=== PATIENT | female | born 1965 | race Caucasian/White ===

== ENCOUNTER 2017-09-24 08:33 | Outpatient (CLI) | payer BC ==
--- NOTE | 2017-09-29 19:06 | Mammography Report ---
DATE OF SERVICE: 09/24/2017 DIGITAL SCREENING MAMMOGRAM: 09/24/2017 CLINICAL INDICATION: A 52-year-old for screening. COMPARISON: 08/2016, 06/2015, 10/2012, 03/2011, 11/2009. TECHNIQUE: Routine CC and MLO projections, as well as bilateral laterally exaggerated craniocaudal v iews, were obtained of the breasts. FINDINGS: The breasts demonstrate heterogeneously dense fibroglandular parenchyma bilaterally. Punc negron, typically benign calcifications are present. No suspicious masses, clustered microcalcifications, or regions of architectural distortion are identified. IMPRESSION: Benign findings. RECOMMENDATION: Routine annual screening unless otherwise clinically indicated. BIRADS category 2 - Benign findings. STANDARD QUALIFYING STATEMENTS 1. This examination was reviewed with the aid of Computed-Aided Detection (CAD). 2. A negative or benign imaging report should not delay biopsy if clinically suspicious findings are present. Consider surgical consultation if warranted. More than 5% of cancers are not identified by imaging. 3. Dense breasts may obscure an underlying neoplasm. TD: 09/28/2017 19:39
== END 2017-09-24 08:34 | disposition home or self-care (01) ==
LOC: DI.S 08:33
PROVIDERS: ATTEND Obstetrics & Gynecology
DX: Z12.39 Encounter for other screening for malignant neoplasm of breast (principal)
CPT/HCPCS: 77067

== ENCOUNTER 2017-09-25 09:11 | Outpatient (CLI) | payer BC ==
--- NOTE | 2017-09-25 19:42 | Ultrasound Report ---
EXAM: PELVIC ULTRASOUND EXAM DATE: 09/25/2017 11:10 AM. CLINICAL HISTORY: Pelvic and perineal pain. Excessive and frequent menstruation with irregular cycle. History of left ovarian cyst removal in 2004. LMP 09/15/2017. COMPARISON: 11/25/2009. TECHNIQUE: Realtime transabdominal pelvic scan performed to identify the uterus and adnexa and as an overview of other pelvic structures, followed by transvaginal scan to provide greater detail of the u terus and adnexa, with static image documentation. FINDINGS: Uterus: Anteverted position. 14.6 x 7.0 x 8.0 cm, volume 430 cc. Heterogeneous myometrium with at [address] 4 discrete myomata, which are difficult to correlate with myomata seen on prior images: 1. Anterior fundal transmural, 7.6 x 5.6 x 7.2 cm. 2. Anterior intramural, 4.2 x 3.5 x 3.8 cm. 3. Posterior fundal subserosal, 3.9 x 2.4 x 3.6 cm. 4. Posterior uterine body subserosal, 2.0 cm. Endometrium: 14 mm. Normal. Cervix: Unremarkable. Right Ovary: 4.6 x 2.4 x 3.1 cm, volume 17.8 cc. Normal echotexture. Left Ovary: 2.1 x 1.3 x 1.7 cm, volume 2.4 cc. Normal echotexture. Free Fluid: Trace anechoic free fluid in the posterior cul-de-sac, within physiologic limits. Other: None. IMPRESSION: 1. Multiple uterine myomata, including an anterior transmural myoma which could be a cause of dysfunc tional uterine bleeding. 2. Unremarkable pre-menopausal sonographic appearance of the ovaries. [facility] Referring Provider Line: [phone] SITE ID: [id number]
== END 2017-09-25 09:12 | disposition home or self-care (01) ==
LOC: DI 09:11
PROVIDERS: ATTEND Obstetrics & Gynecology
DX: D25.1 Intramural leiomyoma of uterus (principal); D25.2 Subserosal leiomyoma of uterus; N85.4 Malposition of uterus
CPT/HCPCS: 76830; 76856

== ENCOUNTER 2017-11-22 15:24 | Outpatient (CLI) | payer BC ==
[2017-11-22 15:58] LABS: BASOPHILS % (AUTO) 0.5 %; EOSINOPHILS # (AUTO) 0.1 10^3/uL (0.0-0.7); EOSINOPHILS % (AUTO) 1.3 %; HGB - HEMOGLOBIN 12.5 g/dL (12.0-16.0); LYMPHOCYTES # (AUTO) 2.1 10^3/uL (1.5-3.5); LYMPHOCYTES % (AUTO) 39.3 %; MEAN CORPUSCULAR HEMOGLOBIN 30.5 pg (27.0-31.0); MEAN CORPUSCULAR HGB CONC 32.9 g/dL (32.0-36.0); MEAN CORPUSCULAR VOLUME 92.8 fL (81.0-99.0); MEAN PLATELET VOLUME 8.1 fL (7.9-10.8); MONOCYTES # (AUTO) 0.3 10^3/uL (0.0-1.0); MONOCYTES % (AUTO) 6.2 %; NEUTROPHILS # (AUTO) 2.8 10^3/uL (1.5-6.6); NEUTROPHILS % (AUTO) 52.7 %; PLT - PLATELET COUNT 298 10^3/uL (130-450); RED BLOOD COUNT 4.09 10^6/uL (4.20-5.40); RED CELL DISTRIBUTION WIDTH 13.6 % (12.0-15.0); WHITE BLOOD COUNT 5.3 x10^3/uL (4.8-10.8)
[2017-11-22 16:31] LABS: HCG,QUALITATIVE BLOOD NEGATIVE
== END 2017-11-22 15:25 | disposition home or self-care (01) ==
LOC: LAB 15:24
PROVIDERS: ATTEND Obstetrics & Gynecology
DX: Z01.812 Encounter for preprocedural laboratory examination (principal); R10.2 Pelvic and perineal pain; D21.9 Benign neoplasm of connective and other soft tissue, unspecified; N92.0 Excessive and frequent menstruation with regular cycle
CPT/HCPCS: 36415; 84703; 85025; 86850; 86900; 86901

== ENCOUNTER 2017-11-24 06:09 | Day surgery (SDC) | payer BC ==
--- NOTE | 2017-11-23 08:33 | PREOP HISTORY & PHYSICAL ---
ANTICIPATED DATE OF ADMISSION: 11/24/2017 IDENTIFICATION: This is a 52-year-old G3, P-3-0-0-3. HISTORY OF PRESENT ILLNESS: This is a patient of [facility] with whom I have been taking care of since 2014. She has been noticing that her menses are getting heavier and more painful as she has each menses. Patient had a workup. On 09/25/2017 a pelvic ultrasound showed a uterus that was anteverted, measuring 14.6 x 7.0 x 8.0 cm and a volume of 430 mL, the heterogeneous myometrium with at least 4 discrete myomata are difficult to correlate to prior studies. Anterior fundal transmural measuring 7.6 x 5.6 x 7.2 cm, anterior intramural measures 4.2 x 3.5 x 3.8 cm, posterior fundal subserosal measuring 3.9 x 2.4 x 3.6 cm and a posterior uterine body subserosal measuring 2.0 cm. Endometrium measures 14 mm. Cervix unremarkable. Right ovary measures 4.6 x 2.4 x 3.1 cm. Left ovary measures 2.1 x 1.3 x 1.7 cm with trace anechoic free fluid. 09/21/2017 endometrial biopsy shows fragments of weakly proliferative endometrium, negative for chronic endometritis, hyperplasia and malignancy. Her most recent Pap smear on 07/27/2016 was negative for intraepithelial lesion or malignancy, as well as negative for the high risk HPV panel. Given these findings, I discussed with patient my recommendations to proceed to a total laparoscopic hysterectomy, bilateral salpingo-oophorectomy and cystoscopy. I discussed with her the risks, benefits, alternatives, indications, expectations of surgery. Included in our discussion were the risk of hemorrhage, infection and damage to surrounding organs, which would most likely be an inadvertent laceration, cauterization or ligation of the adjacent intestines, ureters, and bladder. Furthermore, with this procedure, she will become sterile and no longer able to bear children. Patient will also not be able to have menses. I believe that due to the bulk of the fibroids this is causing her urinary symptoms. She urinates quite frequently. Also, I believe that her pelvic pain is most likely due to leiomyomata, but I cannot be 100% clear of this. There is also a possibility of having to do an open hysterectomy if I do not have adequate visualization via the laparoscopy. The patient acknowledges this and is comfortable with this plan. After patient's questions were answered to her satisfaction, she verbalized her desire to proceed with the aforementioned procedures. Consent forms have been signed. The patient currently is doing well. Denies any nausea, vomiting, fevers, chills, diarrhea or constipation. She is currently accompanied by her , Yong. PAST MEDICAL HISTORY 1. Controlled asthma. 2. Chronic lower back pain secondary to a disk issue. PAST SURGICAL HISTORY 1. Laparoscopic ovarian cystectomy. 2. bilateral tubal sterilization. ALLERGIES: NO KNOWN DRUG ALLERGIES. MEDICATIONS: Claritin [id number]. SOCIAL HISTORY: She denies any tobacco or illicit drug use. She does consume wine. She is a sterile products processor and pearl technician. Patient has been to Yong who is a fitter welder at [employer]. The two of them are planning to eventually retire in [place]. Patient has 3 children, Gray, Christalaner and Day. Her pharmacy of choice is [facility] in [place] and her primary care provider is CAROL Tellez. PAST OBSTETRICAL HISTORY: Three term spontaneous vaginal deliveries with the largest baby weighing 9 pounds 14 ounces. PAST GYNECOLOGICAL HISTORY: All Pap smears have been essentially within normal limits and she denies any history of cryotherapy, LEEP or cold knife cone. All mammograms have been noted to be within normal limits. She has been having perimenopausal symptoms since at least 2010. She is having some mood swings and night sweats. She does feel some constant pain and pressure on the left ovary. FAMILY HISTORY: Maternal aunt had history of breast cancer. REVIEW OF SYSTEMS: Negative unless otherwise stated. PHYSICAL EXAMINATION: VITAL SIGNS: Weight is 182 pounds, height is 67.75 inches, BMI 27.9. GENERAL: She is a well-developed, well-nourished, female, in no apparent distress. She is alert and oriented x3. Patient is very pleasant and is easy to speak to. HEENT: Within normal limits. HEART: Rate is regular. No murmurs, rubs. LUNGS: Lungs are clear to auscultation bilaterally. ABDOMEN: Soft, nontender. No masses, rebound, rigidity or guarding. There was a small well-healed curvilinear incision inferior to the umbilicus that is well healed. ASSESSMENT 1. A 52-year-old G3, P-3-0-0-3. 2. Heavy menstruation. 3. Chronic pelvic pain. 4. Leiomyomata. PLAN 1. We will proceed to a scheduled total laparoscopic hysterectomy, bilateral salpingo-oophorectomy, and cystoscopy on 11/24/2017. 2. Patient to get her preoperative serum , CBC and a type and screen. 3. Patient to get cefazolin 2 grams IV prior to incision. 4. Patient has been given postoperative pain medications for recovery, specifically for Motrin 800 mg, Tylenol 500 mg., Colace 100 mg and oxycodone 5 mg. 5. Patient is to see me at [facility] in 2 weeks for routine postoperative visit. She has been instructed to call me should she have any worsening fevers, chills, abdominal pain or vaginal bleeding. cc: Terrie Tellez PA-C TD: 11/22/2017 17:46 [email or web address]
[2017-11-24] MEDS ORDERED: ceFAZolin 2 GM/50 ML 2 GM/50 ML BAG IV ONE (06:35)
[2017-11-24] MEDS ORDERED: CELECOXIB 100 MG CAPSULE PO ONE (06:38)
[2017-11-24] MEDS ORDERED: LACTATED RINGERS 1,000 ML IV ONE ×3 (06:54→10:10)
[2017-11-24] MEDS ORDERED: SCOPOLAMINE PATCH TOP ONE (07:13)
[2017-11-24] MEDS ORDERED: LIDOCAINE 1%-EPI 1:100000 20 ML MDV SUBQ ONE ×2 (08:04)
[2017-11-24] MEDS ORDERED: ONDANSETRON 4 MG/2 ML VIAL IVP ONE (09:30)
[2017-11-24] MEDS ORDERED: MIDAZOLAM 2 MG/2 ML VIAL IVP ONE (09:30)
[2017-11-24] MEDS ORDERED: PROPOFOL 200 MG/20 ML VIAL IVP ONE (09:30)
[2017-11-24] MEDS ORDERED: DEXAMETHASONE 4 MG/ML VIAL IVP ONE (09:30)
[2017-11-24] MEDS ORDERED: NEOSTIGMINE 1 MG/1 ML 10 ML MDV IVP ONE (09:30)
[2017-11-24] MEDS ORDERED: ACETAMINOPHEN 1,000 MG/100 ML 100 ML IV ONE (09:30)
[2017-11-24] MEDS ORDERED: GLUCAGON 1 MG/ML VIAL IM ONE (09:30)
[2017-11-24] MEDS ORDERED: ROCURONIUM 50 MG/5 ML VIAL IVP ONE (09:30)
[2017-11-24] MEDS ORDERED: fentaNYL 100 MCG/2 ML VIAL IVP ONE (09:30)
--- NOTE | 2017-11-24 10:29 | OPERATIVE REPORT ---
Operative Report - Other Other Information/Narrative: Date of operation: 11/24/2017 Surgeon: Kim Senior DO FACOG Dust Collector: Jamar Holguin MD FACOG Revenue Cycle Manager: Emperatriz Saavedra CRNA Anesthesia: GET Pre-op Dx: 1. 52 yo 2. Heavy menstruation 3. Pelvic pain 4. Leiomyoma Post-op Dx: 1. 52 yo 2. Heavy menstruation 3. Pelvic pain 4. Leiomyoma Procedure: 1. TLH 2. BSO 3. Cystoscopy Findings: 1. Adhesions from sigmoid to left sidewall at pelvic brim 2. Leiomyomatamous uterus 3. Normal ovaries 4. Normal appendix 5. Normal liver edge 6. Surgically absent segments of bilateral fallopian tubes, otherwise normal 7. Normal bladder 8. Bilateral ureteral jets seen at the termination of the case Specimens: 1. Pelvic cyst 2. Uterus, fallopian tubes and ovaries en-bloc Drains: Yuen to gravity EBL: 50 mL Complications: None Dictation: [id number]
[2017-11-24] MEDS: fentaNYL 100 MCG/2 ML VIAL ONE ×2 (10:35→10:40)
[2017-11-24] MEDS ORDERED: ONDANSETRON 4 MG/2 ML VIAL ONE (11:46)
--- NOTE | 2017-11-24 12:17 | OPERATIVE REPORT ---
DATE OF SURGERY: 11/24/2017 PREOPERATIVE DIAGNOSES 1. A 52-year-old G3, P-3-0-0-3. 2. Heavy menstruation. 3. Pelvic pain. 4. Leiomyomata. POSTOPERATIVE DIAGNOSES 1. A 52-year-old G3, P-3-0-0-3. 2. Heavy menstruation 3. Pelvic pain. 4. Leiomyomata. PROCEDURE 1. Total laparoscopic hysterectomy. 2. Bilateral salpingo-oophorectomy. 3. Cystoscopy. SURGEON: Kim Senior DO, FACOG CLINICAL PSYCHOLOGIST PRIVATE PRACTICE: Jamar Holguin MD, FACOG ANESTHESIA: General endotracheal tube. FIELD AUTOMOBILE ADJUSTER: Emperatriz Saavedra CRNA. FINDINGS 1. Adhesions from the sigmoid colon to the left pelvic sidewall at the location of the pelvicbrim. 2. Leiomyomatous uterus. 3. Normal ovaries. 4. Normal appendix. 5. Normal liver edge. 6. Surgically absent segments of the fallopian tubes bilaterally. Otherwise, within normal limits. 7. Normal bladder. 8. Bilateral ureteral jets seen at the termination of the case during cystoscopy. SPECIMENS 1. Posterior cul-de-sac, pelvic cyst. 2. Uterus, fallopian tubes and ovaries en bloc. DRAINS: Yuen catheter was inserted to gravity. ESTIMATED BLOOD LOSS: 50 mL COMPLICATIONS: None. BRIEF HISTORY: The patient is a patient of [facility] who has had a longstanding history of heavy bleeding, pelvic pain and fibroids. Her pain and bleeding has been worsening of late. I discussed with the patient my recommendations to proceed with the total laparoscopic hysterectomy, bilateral salpingo-oophorectomy, and cystoscopy. Included in the discussion were the risks of hemorrhage, infection and damage to surrounding organs, which may include inadvertent laceration cauterization or ligation of the adjacent intestines, ureters, and bladder. With this procedure, she will never be able to have children nor will she have menses again. Though I believe that her urinary symptoms and pelvic pain will be significantly improved, there is no guarantee that there will be complete resolution of these symptoms. After the patient's questions were answered to her satisfaction, she verbalized her desire to proceed with surgery. Consent forms have been signed. OPERATION IN DETAIL: The patient was identified and consented, taken to the operating room where IV access was already in place. She was then given sequential compression devices, which were turned on. The patient was given 2 grams of Ancef for postoperative cellulitis prophylaxis. The patient was then given general endotracheal tube anesthesia as per Emperatriz Saavedra. A Yuen catheter was placed in her bladder. The patient was then prepped and draped in normal sterile fashion in the lithotomy position using the Yellofin stirrups. A timeout was performed, which correctly identified the patient, site of procedure, and procedure itself. A speculum examination revealed that the patient required a large VCare, which was appropriately placed on the cervix. Next, 3 laparoscopic port sites were identified in the abdomen. They were all of 5 mm in length, the first in the subumbilical fold, the second in the right lower quadrant, and a third in the left lower quadrant. The lower quadrant port sites were identified by first finding the anterior superior iliac spine and then moving to the respective 2 fingerbreadths medially and superiorly to these locations. All 3 port sites were injected with 1% lidocaine with epinephrine, a total of 30 mL were used. The laparoscopic port sites were then placed intra-abdominally with the first one in the subumbilical fold. Direct visualization of the camera confirmed entrance into the abdomen. The two other ports were then placed under direct visualization of the camera. No trauma to intra-abdominal organs was noted. Inspection of the pelvis revealed significant adhesions between the sigmoid colon and the left sidewall. The uterus itself had leiomyomata consistent with what we had seen on ultrasound. The appendix was seen and within normal limits as well as the liver edge. A 3 cm transparent cyst was seen in the posterior cul -de-sac. This cyst was not attached and removed through the laparoscopic port site. It had ruptured while going through the 5 mm port. First, the right aspect of the uterus was addressed. The fallopian tube was followed out to its fimbriated end. Infundibulopelvic ligament was then clamped , cut, and cauterized using the LigaSure. This incision was carried through inferiorly with the LigaSure. Next, excising the mesosalpinx and then the broad ligament. This incision was then carried through inferiorly and then medially in order to help create a bladder flap. The uterine artery was identified and cauterized. Next, the cardinal ligaments were then clamped, cauterized, and incised. The bladder flap was further developed. The left aspect of the uterus was then addressed. The adhesions on the sigmoid colon were first lysed. The infundibulopelvic ligament on the left was then clamped, cauterized and incised with the LigaSure. The mesosalpinx was then similarly incised, releasing the ovary. The broad ligament was similarly clamped, cauterized and incised with the LigaSure. The left uterine artery was then clamped, cauterized and incised and then the bladder flap was further developed. The anterior portion of the cervix was further cleaned off and the whitish tissue on top of the cervix was identified. We could palpate the superior cup of the VCare. The Harmonic scalpel incision was made on top of the vagina revealing the superior green cup of the VCare. This incision was continued circumferentially until the cervix had been excised from the pelvis. The specimen was then removed through the vagina. There was some bleeding on the vaginal cuff, particularly on the posterior mid to left portion of the cuff. LigaSure was used to make hemostasis. The vaginal cuff was then closed with a running stitch of 2-0 V-Loc. Hemostasis was noted. At this point in time, the cystoscopy was performed. A 30-degree cystoscope was placed in the bladder and the bladder was inspected. There was no trauma, bleeding or suture noted in the bladder. Both ureteral jets were seen. At this point in time, the procedure had been completed. The Yuen catheter was replaced into the bladder and the air was allowed to escape from the abdomen, thus relieving the pneumoperitoneum. The 3 laparoscopic port sites were closed with 4-0 Monocryl in subcuticular fashion and Dermabond placed on top of the incision. The patient tolerated the procedure well and was taken back to recovery room in stable condition. She will be discharged home later today after postoperative criteria are met. I have explained to the patient and her family, including her and her parents, the results of surgery. All sponge, lap, and needle counts were correct x2 as per nurse report. TD: 11/24/2017 12:15 KEM
[2017-11-24] MEDS ORDERED: oxyCOD/ACETAMIN 5 MG/325 MG TABLET PO ONE (12:38)
[2017-11-24 13:43] VITALS: BP 102/70
== END 2017-11-24 06:10 | disposition home or self-care (01) ==
LOC: SDS 06:09
PROVIDERS: ATTEND Obstetrics & Gynecology
PROC: 0UT24ZZ Resection of Bilateral Ovaries, Percutaneous Endoscopic Approach (ICD-10-PCS; 2017-11-24)
PROC: 0UT74ZZ Resection of Bilateral Fallopian Tubes, Percutaneous Endoscopic Approach (ICD-10-PCS; 2017-11-24)
PROC: 0UT94ZZ Resection of Uterus, Percutaneous Endoscopic Approach (ICD-10-PCS; principal; 2017-11-24 07:30)
DX: R10.2 Pelvic and perineal pain (principal); D25.1 Intramural leiomyoma of uterus; N73.6 Female pelvic peritoneal adhesions (postinfective); J45.909 Unspecified asthma, uncomplicated
CPT/HCPCS: 58571; A9270; J0131; J0690; J3490; J7120

== ENCOUNTER 2019-10-24 07:31 | Outpatient (CLI) | payer BC ==
--- NOTE | 2019-10-24 12:28 | Mammography Report ---
Reason: ROUTINE MAMMO Procedure Date: 10/24/2019 Accession Number: [id number] / [id number] Procedure: MGS - Screening Mammo Dig Bilat CPT Code: Final Report FULL RESULT: EXAM: Screening Mammo Dig Bilat DATE: 10/24/2019 7:55 AM CLINICAL HISTORY: Routine screening TECHNIQUE: (B) - Bilateral CC and MLO views were obtained. COMPARISON: 09/24/2017, 08/06/2016, 07/02/2015. PARENCHYMAL PATTERN: (A) - The breasts demonstrate scattered fibroglandular densities bilaterally. FINDINGS: Progressive fatty replacement of the breast tissue. 9 to 10 cm posterior to the nipple right breast MLO projection is an area of focal asymmetry, possible architectural distortion with 2 possible correlates on the CC projection, one medial and the other slightly lateral. In the left breast 10 to 11 cm from the nipple superiorly on the MLO projection are 2 nodular areas of increased density most likely in the lateral aspect of the left breast on the CC projection. These areas may have been previously present but due to increased fat are more apparent on the current study. Suggest further evaluation of these areas by spot compression and true lateral views. Depending on these results ultrasound may be indicated. No suspicious calcifications or skin thickening on either side. IMPRESSION: Incomplete examination. BI-RADS category 0. Bilateral breasts RECOMMENDATION: (ADDMU) - Additional views using both Mammography and Ultrasound recommended. Bilateral breasts BI-RADS CATEGORY: (0) - Incomplete Examination - need additional evaluation. STANDARD QUALIFYING STATEMENTS: 1. This examination was not reviewed with the aid of Computer-Aided Detection (CAD). 2. A negative or benign imaging report should not preclude biopsy if clinically suspicious findings are present. 3. Dense breasts may obscure an underlying neoplasm. 4. This examination was reviewed without the aid of 3D breast imaging (tomosynthesis).
== END 2019-10-24 07:32 | disposition home or self-care (01) ==
LOC: DI.S 07:31
DX: Z12.31 Encounter for screening mammogram for malignant neoplasm of breast (principal); R92.8 Other abnormal and inconclusive findings on diagnostic imaging of breast
CPT/HCPCS: 77067

== ENCOUNTER 2019-12-13 07:27 | Outpatient (CLI) | payer BC ==
--- NOTE | 2019-12-13 11:12 | Mammography Report ---
Reason: ABNORMAL MAMMOGRAM Procedure Date: 12/13/2019 Accession Number: [id number] / [id number] Procedure: [facility] - Diag Special Views Dig Bilat CPT Code: Final Report FULL RESULT: EXAM: Diag Special Views Dig Bilat, Breast Unilateral Limited DATE: 12/13/2019 8:37 AM CLINICAL HISTORY: Diagnostic examination. The patient is recalled from screening for bilateral breast focal asymmetries. TECHNIQUE: (B) - Bilateral bilateral CC views are obtained. ML views are obtained. Right and left spot CC views and right and left spot MLO views are obtained. COMPARISON: 10/24/2019 through 10/26/2007. PARENCHYMAL PATTERN: (A) - The breast(s) demonstrate(s) scattered fibroglandular densities. FINDINGS: In the left lateral breast as seen on CC image 41 tomographically and left ML image 19 tomographically is a well-circumscribed nodule with question of fatty hilum tomographically and ovoid shape, isodense which is further characterized sonographically where a lymph node which demonstrates typically benign appearance with hilar vascular flow and no loss of morphology is seen in the corresponding location, typically benign finding. The previously seen left breast asymmetry which was seen more centrally in the upper left breast shows no underlying architectural distortion or mass tomographically and partially dissipates with spot views, consistent with normal breast parenchyma. Ultrasound of this area similarly negative for suspicious findings and demonstrates normal breast tissue. In the right breast the previously seen asymmetry partially dissipates with spot views and no underlying architectural distortion or mass is seen tomographically. There are no suspicious masses, calcifications, or areas of distortion in either breast. IMPRESSION: Benign findings. BI-RADS category 2. RECOMMENDATION: (ANNUAL) - Recommend routine annual screening mammography. BI-RADS CATEGORY: (2) - Benign Findings. STANDARD QUALIFYING STATEMENTS: 1. This examination was not reviewed with the aid of Computer-Aided Detection (CAD). 2. A negative or benign imaging report should not preclude biopsy if clinically suspicious findings are present. 3. Dense breasts may obscure an underlying neoplasm. 4. This examination was reviewed with the aid of 3D breast imaging (tomosynthesis).
== END 2019-12-13 07:28 | disposition home or self-care (01) ==
LOC: DI 07:27
PROVIDERS: ATTEND Obstetrics & Gynecology
DX: R92.8 Other abnormal and inconclusive findings on diagnostic imaging of breast (principal)
CPT/HCPCS: 76642; 77066

== ENCOUNTER 2022-01-06 09:03 | Outpatient (CLI) | payer BC | END 2022-01-06 09:04 | disposition home or self-care (01) | LOC: RT 09:03 | PROVIDERS: ATTEND Registered Nurse | DX: J45.909 Unspecified asthma, uncomplicated (principal) | CPT/HCPCS: 94010 ==